=== PATIENT | male | born 1995 | race Caucasian/White ===

== ENCOUNTER 2025-01-04 05:24 | Emergency (ER) | payer OTHER ==
[~2025-01-04] VITALS: Ht 177.8 cm; Wt 60.0 kg
[2025-01-04 05:26] VITALS: BP 128/79; PULSE 86; RESP 14; TEMP 36.8; O2SAT 98
== END 2025-01-04 05:55 | disposition left against medical advice (07) ==
LOC: ER 05:44
DX: S51.811A Laceration without foreign body of right forearm, initial encounter (principal); Z79.899 Other long term (current) drug therapy; W45.8XXA Other foreign body or object entering through skin, initial encounter; Y93.89 Activity, other specified; Y92.89 Other specified places as the place of occurrence of the external cause; Y99.8 Other external cause status
CPT/HCPCS: 82962; 99283